=== PATIENT | male | born 1990 | race African-American/Black ===

== ENCOUNTER 2023-06-01 08:52 | Emergency (ER) | payer MEDICARE, SELFPAY ==
[2023-06-01 08:59] VITALS: BP 140/68
--- NOTE | 2023-06-01 10:46 | ED.GENMED ---
History of Present Illness
General
Chief Complaint: Crisis Evaluation
Time Seen by Provider: 06/01/23 10:41
Travel History
Have you had any contact with someone who has COVID-19?: No
Do you have any symptoms of coronavirus? Fever > 100 degrees, chills, cough, shortness of breath, sore throat, loss of taste or smell, muscle aches, or headache?: No
History of Present Illness
History of Present Illness:
32-year-old male with history of schizophrenia presents to the emergency department due to 'violent behavior'. 302 was petitioned by family due to making violent threats and has history of violent behavior however this was not upheld. He states
that he ran out of his medications but he will not tell me what medications he typically takes. On my evaluation he is attempting to sleep and does not offer any significant history. He denies any suicidal or homicidal ideation to me. He states
that he is requesting to sign himself in for inpatient treatment. Offers no other complaints
Past History
Past History
ED Past Medical History: Psychiatric (Schizophrenia)
ED Past Surgical History: None
Social History
Tobacco: Smoker
Alcohol: None
Drug: None
Personal: Single
Living: with roommate
Review of Systems
Review of Systems
Allergies reviewed?: Yes
All Other Systems: ROS reviewed and negative except as documented in HPI and ROS
Phy Exam
Physical Exam
Physical Exam:
GEN: Well appearing, NAD, WDWN
HEENT: Oral mucosa moist, no scleral icterus
Cardiac: Regular rate
Lung: No respiratory distress, no tachypnea
MSK: No gross deformity or injuries
Skin: Good color, no pallor or jaundice, no rashes
Neuro: AO x3, moves all extremities freely
Psych: Patient is a difficult historian, refused to cooperate with the exception of yes and no answers to simple questions
Course
Orders/Labs/Results
Orders:
Orders
06/01/23 10:47
Urine Drug Abuse Screen Urgent
Date Specimen was Collected: 06/01/23
Time Specimen was Collected: 12:12
06/01/23 10:49
Crisis Consult Urgent
Reason for Consult: violent behavior, 201
06/01/23 11:19
COVID-19 Antigen Urgent
Source: Nasal Swab
Complete Blood Count/With Diff Urgent
Comprehensive Metabolic Panel Urgent
Abnormal Lab Results
06/01/23
11:19
MPV 11.4 H fL
(7.4-10.4)
06/01/23 11:19
06/01/23 11:19
Vital Signs
Initial and Last Documented VS:
Initial Vital Signs
Temp Pulse Resp BP Pulse Ox
98.1 F 74 18 140/68 98
06/01/23 08:59 06/01/23 08:59 06/01/23 08:59 06/01/23 08:59 06/01/23 08:59
Last Documented Vital Signs
Temp Pulse Resp BP Pulse Ox
98.1 F 74 18 140/68 98
06/01/23 08:59 06/01/23 08:59 06/01/23 08:59 06/01/23 08:59 06/01/23 08:59
MDM/Problems Addressed
MDM/Problems Addressed:
Crisis evaluated the patient and he will sign himself in for inpatient treatment. 302 was not upheld. Labs unremarkable, medically cleared for psychiatric placement
*Critical Care Note
Total Time (30-74mins, 75-104mins- exclusive of procedures): Not Applicable
ED Attending Note
-
Portions of this chart may have been created with voice recognition software.� Occasional wrong word or��sound alike� substitutions may have occurred due to the inherent limitations of voice recognition software.
Discharge Plan
Departure
Patient Disposition: Psych Facility
Date of Disposition: 06/01/23
Time of Disposition: 12:24
Patient Status:: 201
Discharge Problem:
Schizophrenia, Violent behavior
Prescriptions:
No Action
olanzapine 15 mg tablet
15 mg PO DAILY
melatonin 5 mg capsule
5 mg PO HSPRN PRN (Reason: sleep)
Referrals:
UNKNOWN,NO INTERVIEW [Family Provider] -
Interventions
Interventions:
*Risk Screen - Suicide Last Done: 06/01/23 13:52
*General Assessment Last Done: 06/01/23 13:52
*Neglect/Abuse Screening Last Done: 06/01/23 13:52
ED- Fall Risk Assessment Last Done: 06/01/23 13:52
*ED COVID-19 Vaccine History Last Done: 06/01/23 13:52
*Nursing Disposition Last Done: 06/01/23 13:52
ED-Psychological Assessment Last Done: 06/01/23 09:38
Discharge Date and Time
Discharge Date/Time: 06/01/23 13:53
[2023-06-01 11:28] LABS: % Basophils 0.6 % (0-2); % Eosinophils 2.1 % (0-6); % Immature Granulocytes 0.2 % (0-0.5); % Lymphocytes 25.1 % (20.5-51.1); % Monocytes 4.8 % (1.7-9.3); % Neutrophils 67.2 % (42.2-75.2); Absolute Basophils 0.1 10^3/uL (0-0.2); Absolute Eosinophils 0.2 10^3/uL (0-0.7); Absolute Lymphocytes 2.1 10^3/uL (1.2-3.4); Absolute Monocytes 0.4 10^3/uL (0.1-0.6); Absolute Neutrophils 5.7 10^3/uL (1.4-6.5); Hematocrit 43.9 % (39.0-52.0); Hemoglobin 15.1 g/dL (13.0-18.0); Mean Corp Hgb Conc. 34.4 g/dL (33.0-37.0); Mean Corpuscular Volume 90.1 fL (80.0-94.0); Mean Platelet Volume 11.4 fL (7.4-10.4); Nucleated Red Blood Cells % 0 % (-); Platelet Count 228 10^3/uL (130-400); Red Blood Cell Count 4.87 10^6/uL (4.70-6.10); Red Cell Dist. Width 12.4 % (11.5-14.5); White Blood Cell Count 8.5 10^3/uL (4.8-10.8)
[2023-06-01 11:41] LABS: COVID-19 Antigen Negative (Negative)
[2023-06-01 11:42] LABS: ALT (SGPT) 22 U/L (0-50); AST (SGOT) 28 U/L (17-59); Alkaline Phosphatase 70 U/L (38-126); Blood Urea Nitrogen 11 mg/dl (9-20); Calcium 9.7 mg/dl (8.4-10.2); Carbon Dioxide 27 mmol/L (22-30); Chloride 106 mmol/L (98-107); Glucose 90 mg/dl (70-99); Potassium 4.6 mmol/L (3.5-5.1); Sodium 139 mmol/L (135-145); Total Bilirubin 0.7 mg/dl (0.2-1.3); Total Protein 7.7 g/dl (6.3-8.2); eGFR > 60.00
== END 2023-06-01 13:53 ==
LOC: EMR 08:52
PROVIDERS: Physician Assistant; EMERGENCY PHYSICIAN Emergency Medicine
DX: F20.9 Schizophrenia, unspecified (principal); R45.6 Violent behavior; F17.200 Nicotine dependence, unspecified, uncomplicated; Z11.52 Encounter for screening for COVID-19; Z91.148 Patient's other noncompliance with medication regimen for other reason
CPT/HCPCS: 99283; 80053; 85025; 87811